=== PATIENT | male | born 1950 | race Caucasian/White ===

== ENCOUNTER 2018-06-13 20:33 | Inpatient (IN) | payer OTHER ==
[~2018-06-13] VITALS: Ht 185.4 cm; Wt 110.9 kg
[~2018-06-13 20:33] MED LIST: AZOR 10/40 M1 TABLET PO; Azor 10/40 mg PO; CELEBREX200 MG PO; COUMADIN,JANTOVE1 MG PO; COZAAR100 MG PO; CRESTOR40 MG PO; ENDOCET 5-3251 EACH PO; FEOSOL325 MG PO; KEFLEX500 MG PO; MEDROL DOSEPAK4 MG PO; NAPROSYN500 MG PO; NIFEDIPINE ER30 MG PO; NORCO 5/3251 TABLET PO; PERCOCET 5/31 TABLET PO; PROCARDIA XL90 MG PO; Percocet 5/325,Endoc PO; ULTRAM50 MG PO; VALIUM5 MG PO; Xarelto PO
[2018-06-14 12:13] VITALS: BP 132/79
[2018-06-14 18:42] LABS: HEMATOCRIT 41.9 % (38.0-50.0); HEMOGLOBIN 14.3 G/DL (12.5-16.6); MCH 30.5 PG (29.0-34.0); MCHC 34.1 G/DL (30.0-36.0); MCV 89.3 FL (86-99); PLATELET COUNT 251 K/uL (156-360); RBC DIS.WIDTH-CV 13.6 % (11.8-14.6); RBC DIS.WIDTH-SD 44.1 % (39-53); RED BLOOD COUNT 4.69 M/uL (4.00-5.50)
[2018-06-14 19:03] LABS: TROP-I INTERPRETATION NEGATIVE; TROPONIN-I < 0.01 ng/mL (0.0-0.30)
[2018-06-14 19:06] LABS: CHLORIDE 104 MEQ/L (99-109); POTASSIUM 4.4 MEQ/L (3.7-5.4); SODIUM 139 MEQ/L (136-147)
[2018-06-14 19:12] LABS: CREATININE 1.1 MG/DL (0.6-1.3); GFR ESTIMATE (CALCULATED) > 59 mL/min/ (58.99-99999); GLUCOSE 99 mg/dL (70-99); UREA NITROGEN (BUN) 15 mg/dL (9-23)
[2018-06-14 20:30] VITALS: BP 142/74
[2018-06-14 21:30] VITALS: BP 142/74
[2018-06-14 21:31] VITALS: BP 142/74
[2018-06-14 23:44] VITALS: BP 120/73
[2018-06-15 03:36] VITALS: BP 114/77
[2018-06-15 05:41] LABS: HEMATOCRIT 42.8 % (38.0-50.0); HEMOGLOBIN 14.4 G/DL (12.5-16.6); MCH 29.9 PG (29.0-34.0); MCHC 33.6 G/DL (30.0-36.0); MCV 88.8 FL (86-99); PLATELET COUNT 301 K/uL (156-360); RBC DIS.WIDTH-CV 13.3 % (11.8-14.6); RBC DIS.WIDTH-SD 43.5 % (39-53); RED BLOOD COUNT 4.82 M/uL (4.00-5.50); WHITE BLOOD COUNT 15.4 K/uL (4.1-10.2)
[2018-06-15 06:00] LABS: TROP-I INTERPRETATION NEGATIVE; TROPONIN-I < 0.01 ng/mL (0.0-0.30)
[2018-06-15 06:08] LABS: CHLORIDE 103 MEQ/L (99-109); CREATININE 1.1 MG/DL (0.6-1.3); GFR ESTIMATE (CALCULATED) > 59 mL/min/ (58.99-99999); GLUCOSE 141 mg/dL (70-99); POTASSIUM 4.3 MEQ/L (3.7-5.4); SODIUM 138 MEQ/L (136-147); UREA NITROGEN (BUN) 15 mg/dL (9-23)
[2018-06-15 07:47] VITALS: BP 129/71
== END 2018-06-15 11:24 | disposition home or self-care (01) | DRG 269 ==
LOC: ENRESERV 20:33 → CANRESERV 20:33 → ENRESERV 06-14 08:17 → 2SOUTH 06-14 10:57 → ENRESERV 06-14 19:57 → 4EAST 06-14 20:25
PROVIDERS: Surgery
PROC: 04V03D6 (ICD-10-PCS; principal; 2018-06-14)
DX: I71.4 Abdominal aortic aneurysm, without rupture (principal); I10 Essential (primary) hypertension; E78.00 Pure hypercholesterolemia, unspecified; M19.90 Unspecified osteoarthritis, unspecified site; F17.200 Nicotine dependence, unspecified, uncomplicated; Z96.642 Presence of left artificial hip joint; Z96.653 Presence of artificial knee joint, bilateral
CPT/HCPCS: 80048; 84484; 85027; 93005; C1725; C1769; C1894; J0131; J0330; J0690; J1100; J1170; J1644; J1650; J2250; J2710; J2720; J3010; J7120; J7643